=== PATIENT | male | born 1960 | race Caucasian/White ===

== ENCOUNTER 2017-08-21 10:08 | Inpatient (IN) | payer MEDICAID ==
[~2017-08-21] VITALS: Ht 175.3 cm; Wt 62.1 kg
[2017-08-21 10:49] LABS: Basophils # (auto) 0 uL; Basophils % (auto) 0.3 % (0.0-2.0); Eosinophils # (auto) 0.1 uL; Eosinophils % (auto) 0.9 % (0.0-7.0); Hematocrit 43.6 % (41.0-53.0); Hemoglobin 14.6 g/dL (13.5-17.5); Lymphocytes # (auto) 3.3 uL; Lymphocytes % (auto) 42.3 % (10.0-50.0); Mean Corpuscular Hemoglobin 33.5 pg (28.0-32.0); Mean Corpuscular Hgb Conc. 33.5 g/dL (32.0-36.0); Monocytes # (auto) 0.7 uL; Monocytes % (auto) 8.7 % (0.0-12.0); Neutrophils # (auto) 3.8 uL; Neutrophils % (auto) 47.8 % (37.0-80.0); Platelet Count (auto) 198 10^3/uL (140-450); Red Blood Cells 4.35 10^6/uL (4.5-5.90); Red Cell Distribution Width 12.9 % (11.8-14.3); White Blood Cell 7.8 10^3/uL (4.4-10.8)
[2017-08-21 10:52] LABS: Mean Corpuscular Volume 100.2 fL (80.0-100.0)
[2017-08-21 11:11] LABS: Alanine Aminotransferase 16 U/L (16-61); Albumin 4.3 g/dL (3.4-5.0); Alkaline Phosphatase 55 U/L (45-117); Anion Gap 22 (5-15); Aspartate Aminotransferase 9 U/L (15-37); BUN/Creatinine Ratio 9.3; Bilirubin, Total 0.5 mg/dL (0.2-1.0); Blood Alcohol < 3.0 mg/dL (0-5); Blood Urea Nitrogen 15 mg/dL (7-18); Calcium 9.7 mg/dL (8.5-10.1); Carbon Dioxide 15 mmol/L (21-32); Chloride 97 mmol/L (98-107); GFR African American 57 mL/min; GFR Non-African American 47 mL/min; Glucose 346 mg/dL (74-106); Magnesium 2.7 mg/dL (1.6-2.6); Potassium 4.3 mmol/L (3.5-5.1); Sodium 134 mmol/L (136-145); Total Protein 8.4 g/dL (6.4-8.2)
[2017-08-21] MEDS ORDERED: SODIUM CHLORIDE 0.9% 1,000 ML IV ONE ×2 (11:19)
[2017-08-21] MEDS ORDERED: InsuLIN REG 1unit/0.01ml Soln (100units/ml) IV ONE (13:30)
[2017-08-21] MEDS ORDERED: InsuLIN R (HUMAN) 100 UNITS in SODIUM CHL 0.9% 99 ML IV SCH (13:50)
[2017-08-21] MEDS ORDERED: DEXTROSE (50%) 50ML SYRG IV PRN (14:00)
[2017-08-21] MEDS: SODIUM CHLORIDE 0.9% 1,000 ML IV SCH ×3 (14:02→20:35)
[2017-08-21 14:12] LABS: Urine WBC None Seen /hpf (0 - 3)
[2017-08-21 14:26] LABS: Urine Bacteria NONE SEEN /hpf (None Seen); Urine Blood Negative /uL (Negative); Urine Specific Gravity 1.027 (1.001-1.035)
[2017-08-21 14:35] LABS: Basophils # (auto) 0 uL; Basophils % (auto) 0.3 % (0.0-2.0); Eosinophils # (auto) 0 uL; Eosinophils % (auto) 0.5 % (0.0-7.0); Hematocrit 35.9 % (41.0-53.0); Lymphocytes # (auto) 3.1 uL; Lymphocytes % (auto) 46.2 % (10.0-50.0); Mean Corpuscular Hemoglobin 33.7 pg (28.0-32.0); Mean Corpuscular Hgb Conc. 33.5 g/dL (32.0-36.0); Mean Corpuscular Volume 100.7 fL (80.0-100.0); Monocytes # (auto) 0.5 uL; Monocytes % (auto) 7.1 % (0.0-12.0); Neutrophils # (auto) 3.1 uL; Neutrophils % (auto) 45.9 % (37.0-80.0); Nucleated Red Blood Cells % 0.2 %; Platelet Count (auto) 123 10^3/uL (140-450); Red Blood Cells 3.57 10^6/uL (4.5-5.90); Red Cell Distribution Width 12.9 % (11.8-14.3); White Blood Cell 6.8 10^3/uL (4.4-10.8)
[2017-08-21 14:52] LABS: Calcium 7.9 mg/dL (8.5-10.1); Magnesium 2.3 mg/dL (1.6-2.6); Phosphorus 2.1 mg/dL (2.5-4.90); Potassium 3.4 mmol/L (3.5-5.1)
[2017-08-21] MEDS ORDERED: ASPirin-EC 81 mg tab PO ONE (15:00)
[2017-08-21] MEDS ORDERED: LORazepam 2MG/ML-1ML VIAL IV PRN (15:00)
[2017-08-21] MEDS ORDERED: PANTOPRAZOLE 40 MG TAB PO ONE (15:15)
[2017-08-21] MEDS ORDERED: HYDROcodone-ACET 5/325MG TAB PO PRN (15:30)
[2017-08-21] MEDS ORDERED: ONDANSETRON HCL 4 MG/2 ML VIAL IV PRN (15:30)
[2017-08-21] MEDS ORDERED: DOCUSATE SOD 100 MG CAP PO PRN (15:30)
[2017-08-21] MEDS ORDERED: MORPHINE SULFATE 4 MG/ML SYR/VIAL IV PRN ×2 (15:30)
[2017-08-21] MEDS ORDERED: TEMAZEPAM 15 MG CAP PO PRN (15:30)
[2017-08-21] MEDS ORDERED: NITROGLYCERIN 0.4 MG SL TAB SL PRN (15:30)
[2017-08-21] MEDS: ACCU-CHEK COMFORT CURVE STRIP VI SCH ×5 (15:40→21:35)
[2017-08-21] MEDS ORDERED: CITALOPRAM HYDROBR 20 MG TAB PO ONE (15:45)
[2017-08-21] MEDS ORDERED: SODIUM CHLORIDE 0.9% 1,000 ML IV SCH (17:50)
[2017-08-21 20:45] LABS: BUN/Creatinine Ratio 10.3; Calcium 7.4 mg/dL (8.5-10.1)
[2017-08-21 20:59] LABS: Potassium 2.9 mmol/L (3.5-5.1)
[2017-08-21] MEDS ORDERED: FAMOTIDINE 20 MG TAB PO SCH (22:00)
[2017-08-21] MEDS: BUDESONIDE (INHALATION) 0.5 MG/2 ML NEB NEB SCH (22:02)
[2017-08-21] MEDS: prednisoLONE ACETATE 1% OPTH SUSP 5ML LEFTEYE SCH (22:31)
[2017-08-21] MEDS: LEVETIRACETAM 500 MG TAB PO SCH (22:33)
[2017-08-21] MEDS: ATORVASTATIN 20 MG TAB PO SCH (22:33)
[2017-08-21 22:50] VITALS: BP 110/63
[2017-08-22] MEDS ORDERED: POTASSIUM CHL 20 Meq TABLET PO ONE (01:00)
[2017-08-22] MEDS: ACCU-CHEK COMFORT CURVE STRIP VI SCH ×6 (01:44→20:08)
[2017-08-22 02:25] LABS: BUN/Creatinine Ratio 8.5; Calcium 7.8 mg/dL (8.5-10.1); Potassium 3.4 mmol/L (3.5-5.1)
[2017-08-22] MEDS: SODIUM CHLORIDE 0.9% 1,000 ML IV SCH (03:33)
[2017-08-22] MEDS ORDERED: DEXTROSE (50%) 50ML SYRG IV PRN (04:00)
[2017-08-22] MEDS: InsuLIN REG 1unit/0.01ml Soln (100units/ml) SC SCH ×5 (04:21→20:08)
[2017-08-22 05:47] LABS: Basophils # (auto) 0 uL; Basophils % (auto) 0.2 % (0.0-2.0); Eosinophils # (auto) 0.1 uL; Mean Corpuscular Hemoglobin 34.2 pg (28.0-32.0); Mean Corpuscular Hgb Conc. 34.7 g/dL (32.0-36.0); Monocytes # (auto) 0.5 uL; Monocytes % (auto) 7.2 % (0.0-12.0); Platelet Count (auto) 128 10^3/uL (140-450)
[2017-08-22 05:51] LABS: Eosinophils % (auto) 1.4 % (0.0-7.0); Hematocrit 34.9 % (41.0-53.0); Hemoglobin 12.1 g/dL (13.5-17.5); Lymphocytes % (auto) 42.1 % (10.0-50.0); Mean Corpuscular Volume 98.5 fL (80.0-100.0); Neutrophils # (auto) 3.5 uL; Neutrophils % (auto) 49.1 % (37.0-80.0); Nucleated Red Blood Cells % 0.1 %; Red Blood Cells 3.55 10^6/uL (4.5-5.90); Red Cell Distribution Width 12.7 % (11.8-14.3); White Blood Cell 7.2 10^3/uL (4.4-10.8)
[2017-08-22 06:28] LABS: Albumin 2.8 g/dL (3.4-5.0); BUN/Creatinine Ratio 8.4; Bilirubin, Total 0.3 mg/dL (0.2-1.0); Calcium 8.1 mg/dL (8.5-10.1); Potassium 3.4 mmol/L (3.5-5.1); Total Protein 5.5 g/dL (6.4-8.2)
[2017-08-22 09:08] VITALS: BP 105/72
[2017-08-22] MEDS: TIMOLOL MALEATE 0.25 % OPTH SOL 5ML LEFTEYE SCH (10:00)
[2017-08-22] MEDS: BUDESONIDE (INHALATION) 0.5 MG/2 ML NEB NEB SCH ×2 (10:00→22:00)
[2017-08-22] MEDS: ASPirin-EC 81 mg tab PO SCH (10:55)
[2017-08-22] MEDS: PANTOPRAZOLE 40 MG TAB PO SCH (10:57)
[2017-08-22] MEDS: MULTIPLE VITAMIN TAB PO SCH (10:57)
[2017-08-22] MEDS: B-COMPLEX W/ C & FOLIC ACID(NEPHROVITE TAB) PO SCH (10:57)
[2017-08-22] MEDS: CYANOCOBALAMIN 500 MCG TAB PO SCH (10:57)
[2017-08-22] MEDS: LEVETIRACETAM 500 MG TAB PO SCH ×2 (10:58→21:44)
[2017-08-22] MEDS: prednisoLONE ACETATE 1% OPTH SUSP 5ML LEFTEYE SCH ×2 (10:59→21:43)
[2017-08-22] MEDS: CITALOPRAM HYDROBR 20 MG TAB PO SCH (11:06)
[2017-08-22 11:54] VITALS: BP 95/55
[2017-08-22 17:00] VITALS: BP 93/58
[2017-08-22] MEDS: ATORVASTATIN 20 MG TAB PO SCH (21:44)
[2017-08-22 22:00] VITALS: BP 98/60
[2017-08-23] MEDS: InsuLIN REG 1unit/0.01ml Soln (100units/ml) SC SCH ×7 (00:23→23:54)
[2017-08-23] MEDS: ACCU-CHEK COMFORT CURVE STRIP VI SCH ×7 (00:23→23:54)
[2017-08-23 05:00] VITALS: BP 100/59
[2017-08-23 09:00] VITALS: BP 90/53
[2017-08-23] MEDS: BUDESONIDE (INHALATION) 0.5 MG/2 ML NEB NEB SCH ×2 (09:51→18:39)
[2017-08-23] MEDS: TIMOLOL MALEATE 0.25 % OPTH SOL 5ML LEFTEYE SCH (10:00)
[2017-08-23] MEDS: prednisoLONE ACETATE 1% OPTH SUSP 5ML LEFTEYE SCH ×4 (10:00→21:25)
[2017-08-23] MEDS: LEVETIRACETAM 500 MG TAB PO SCH ×2 (10:25→21:14)
[2017-08-23] MEDS: ASPirin-EC 81 mg tab PO SCH (10:25)
[2017-08-23] MEDS: CITALOPRAM HYDROBR 20 MG TAB PO SCH (10:26)
[2017-08-23] MEDS: metFORMIN HYDROCHLORIDE 500 MG TAB PO SCH (10:26)
[2017-08-23] MEDS: PANTOPRAZOLE 40 MG TAB PO SCH (10:26)
[2017-08-23] MEDS: B-COMPLEX W/ C & FOLIC ACID(NEPHROVITE TAB) PO SCH (10:26)
[2017-08-23] MEDS: CYANOCOBALAMIN 500 MCG TAB PO SCH (10:26)
[2017-08-23] MEDS: MULTIPLE VITAMIN TAB PO SCH (10:26)
[2017-08-23 10:32] LABS: Basophils # (auto) 0 uL; Basophils % (auto) 0.1 % (0.0-2.0); Eosinophils # (auto) 0.1 uL; Eosinophils % (auto) 0.8 % (0.0-7.0); Hematocrit 34.9 % (41.0-53.0); Lymphocytes # (auto) 2.5 uL; Lymphocytes % (auto) 33.9 % (10.0-50.0); Mean Corpuscular Hemoglobin 33.7 pg (28.0-32.0); Mean Corpuscular Hgb Conc. 34.5 g/dL (32.0-36.0); Mean Corpuscular Volume 97.8 fL (80.0-100.0); Monocytes # (auto) 0.6 uL; Monocytes % (auto) 8.5 % (0.0-12.0); Neutrophils # (auto) 4.2 uL; Neutrophils % (auto) 56.7 % (37.0-80.0); Platelet Count (auto) 131 10^3/uL (140-450); Red Blood Cells 3.57 10^6/uL (4.5-5.90); Red Cell Distribution Width 12.8 % (11.8-14.3); White Blood Cell 7.4 10^3/uL (4.4-10.8)
[2017-08-23 10:48] LABS: Albumin 2.6 g/dL (3.4-5.0); BUN/Creatinine Ratio 10.8; Bilirubin, Total 0.3 mg/dL (0.2-1.0); Calcium 8.2 mg/dL (8.5-10.1); Potassium 3.1 mmol/L (3.5-5.1); Total Protein 5.3 g/dL (6.4-8.2)
[2017-08-23 12:30] VITALS: BP 82/50
[2017-08-23 17:00] VITALS: BP 109/67
[2017-08-23] MEDS: ATORVASTATIN 20 MG TAB PO SCH (21:15)
[2017-08-23 21:30] VITALS: BP 97/65
[2017-08-24] MEDS: InsuLIN REG 1unit/0.01ml Soln (100units/ml) SC SCH ×5 (03:59→20:47)
[2017-08-24] MEDS: ACCU-CHEK COMFORT CURVE STRIP VI SCH ×5 (03:59→20:00)
[2017-08-24 04:45] VITALS: BP 98/60
[2017-08-24 06:24] LABS: BUN/Creatinine Ratio 15.9; Calcium 8.7 mg/dL (8.5-10.1)
[2017-08-24 09:00] VITALS: BP 97/54
[2017-08-24] MEDS: metFORMIN HYDROCHLORIDE 500 MG TAB PO SCH (09:43)
[2017-08-24] MEDS: prednisoLONE ACETATE 1% OPTH SUSP 5ML LEFTEYE SCH ×2 (09:43→21:52)
[2017-08-24] MEDS: PANTOPRAZOLE 40 MG TAB PO SCH (09:43)
[2017-08-24] MEDS: MULTIPLE VITAMIN TAB PO SCH (09:43)
[2017-08-24] MEDS: B-COMPLEX W/ C & FOLIC ACID(NEPHROVITE TAB) PO SCH (09:43)
[2017-08-24] MEDS: CITALOPRAM HYDROBR 20 MG TAB PO SCH (09:43)
[2017-08-24] MEDS: ASPirin-EC 81 mg tab PO SCH (09:44)
[2017-08-24] MEDS: CYANOCOBALAMIN 500 MCG TAB PO SCH (09:44)
[2017-08-24] MEDS: LEVETIRACETAM 500 MG TAB PO SCH ×2 (09:44→21:52)
[2017-08-24] MEDS: TIMOLOL MALEATE 0.25 % OPTH SOL 5ML LEFTEYE SCH (09:45)
[2017-08-24] MEDS ORDERED: POTASSIUM CHLORIDE 60 MEQ, LIDOCAINE 1% (LOCAL ANESTH.) 6 ML in SODIUM CHL 0.9% 500 ML IV ONE (10:00)
[2017-08-24 13:00] VITALS: BP 88/49
[2017-08-24 16:58] VITALS: BP 97/62
[2017-08-24] MEDS: ATORVASTATIN 20 MG TAB PO SCH (21:53)
[2017-08-24 22:00] VITALS: BP 101/69
[2017-08-25] MEDS: ACCU-CHEK COMFORT CURVE STRIP VI SCH ×4 (00:23→12:00)
[2017-08-25] MEDS: InsuLIN REG 1unit/0.01ml Soln (100units/ml) SC SCH ×4 (04:52→12:00)
[2017-08-25 05:48] VITALS: BP 93/53
[2017-08-25 05:55] LABS: Red Cell Distribution Width 12.8 % (11.8-14.3); White Blood Cell 6.4 10^3/uL (4.4-10.8)
[2017-08-25 05:58] LABS: Hematocrit 33.8 % (41.0-53.0); Hemoglobin 11.7 g/dL (13.5-17.5); Mean Corpuscular Hemoglobin 34.4 pg (28.0-32.0); Mean Corpuscular Hgb Conc. 34.6 g/dL (32.0-36.0); Mean Corpuscular Volume 99.4 fL (80.0-100.0); Platelet Count (auto) 108 10^3/uL (140-450)
[2017-08-25 06:23] LABS: Albumin 2.6 g/dL (3.4-5.0); BUN/Creatinine Ratio 16.9; Bilirubin, Total 0.2 mg/dL (0.2-1.0); Calcium 8.5 mg/dL (8.5-10.1); Potassium 3.6 mmol/L (3.5-5.1); Total Protein 5.2 g/dL (6.4-8.2)
[2017-08-25 06:31] LABS: Band Neutrophils % (manual) 0
[2017-08-25 06:32] LABS: Basophils % (manual) 0 (0.0-2.0); Blast Cells 0; Eosinophils % (manual) 0 (0-7); Metamyelocytes % 0; Myelocytes % 0; Promyelocytes % 0; Reactive Lymphocytes 0
[2017-08-25 07:02] LABS: Lymphocytes % (manual) 69 (10.0-50.0); Monocytes % (manual) 6 (0-12)
[2017-08-25 08:00] VITALS: BP 103/68
[2017-08-25] MEDS: TIMOLOL MALEATE 0.25 % OPTH SOL 5ML LEFTEYE SCH (08:55)
[2017-08-25] MEDS: B-COMPLEX W/ C & FOLIC ACID(NEPHROVITE TAB) PO SCH (08:55)
[2017-08-25] MEDS: CITALOPRAM HYDROBR 20 MG TAB PO SCH (08:55)
[2017-08-25] MEDS: prednisoLONE ACETATE 1% OPTH SUSP 5ML LEFTEYE SCH (08:55)
[2017-08-25] MEDS: PANTOPRAZOLE 40 MG TAB PO SCH (08:56)
[2017-08-25] MEDS: ASPirin-EC 81 mg tab PO SCH (08:56)
[2017-08-25] MEDS: MULTIPLE VITAMIN TAB PO SCH (08:56)
[2017-08-25] MEDS: LEVETIRACETAM 500 MG TAB PO SCH (08:56)
[2017-08-25] MEDS: metFORMIN HYDROCHLORIDE 500 MG TAB PO SCH (08:56)
[2017-08-25] MEDS: CYANOCOBALAMIN 500 MCG TAB PO SCH (08:56)
[2017-08-25 12:38] VITALS: BP 109/74
== END 2017-08-25 15:02 | disposition home or self-care (01) | DRG 420 ==
LOC: ER 10:08 → OVERFLOW 10:09 → TELE-WESTW 08-22 08:00
PROVIDERS: ADMIT Internal Medicine; ATTEND Internal Medicine
DX: E11.10 Type 2 diabetes mellitus with ketoacidosis without coma (principal); N17.0 Acute kidney failure with tubular necrosis; G93.41 Metabolic encephalopathy; E44.0 Moderate protein-calorie malnutrition; N18.3 Chronic kidney disease, stage 3 (moderate); E87.1 Hypo-osmolality and hyponatremia; F17.210 Nicotine dependence, cigarettes, uncomplicated; E11.21 Type 2 diabetes mellitus with diabetic nephropathy; E11.22 Type 2 diabetes mellitus with diabetic chronic kidney disease; E11.40 Type 2 diabetes mellitus with diabetic neuropathy, unspecified; E78.5 Hyperlipidemia, unspecified; E83.41 Hypermagnesemia; E86.0 Dehydration; I67.2 Cerebral atherosclerosis; E87.6 Hypokalemia; F79 Unspecified intellectual disabilities; Z91.19 Patient's noncompliance with other medical treatment and regimen; I69.311 Memory deficit following cerebral infarction; I69.398 Other sequelae of cerebral infarction
CPT/HCPCS: 36415; 36600; 70450; 71046; 80048; 80053; 80320; 81001; 82010; 82805; 82962; 83036; 83735; 83930; 84100; 84443; 84484; 85007; 85025; 85027; 87081; 93005; 93886; 94640; 96361; 96374; 99291; G0378; J1815; J2001

== ENCOUNTER 2020-05-24 07:31 | Inpatient (IN) | payer MEDICAID ==
[~2020-05-24] VITALS: Ht 170.2 cm; Wt 61.2 kg
[2020-05-24] MEDS ORDERED: SODIUM CHLORIDE 0.9% 1,000 ML IV ONE ×2 (08:15→09:45)
[2020-05-24] MEDS ORDERED: InsuLIN REG 1unit/0.01ml Soln (100units/ml) IV ONE ×2 (09:15→16:15)
[2020-05-24 10:16] LABS: Basophils # (auto) 0.1 10 ^3/uL (0-0.2); Eosinophils # (auto) 0 10 ^3/uL (0-0.8); Hemoglobin 15.6 g/dL (13.5-17.5); Neutrophils # (auto) 17.1 10 ^3/uL (1.6-8.6)
[2020-05-24 10:21] LABS: Basophils % (auto) 0.3 % (0.0-2.0); Hematocrit 51.5 % (41.0-53.0); Lymphocytes # (auto) 2.7 10 ^3/uL (0.4-5.4); Lymphocytes % (auto) 11.4 % (10.0-50.0); Mean Corpuscular Hemoglobin 33.2 pg (28.0-32.0); Mean Corpuscular Hgb Conc. 30.3 g/dL (32.0-36.0); Mean Corpuscular Volume 109.8 fL (80.0-100.0); Monocytes # (auto) 3.5 10 ^3/uL (0-1.3); Neutrophils % (auto) 73.3 % (37.0-80.0); Platelet Count (auto) 202 10^3/uL (140-450); Red Blood Cells 4.69 10^6/uL (4.5-5.90); Red Cell Distribution Width 14.5 % (11.8-14.3); White Blood Cell 23.4 10^3/uL (4.4-10.8)
[2020-05-24 12:01] LABS: Albumin 4.2 g/dL (3.4-5.0); Anion Gap 32 (5-15); Blood Urea Nitrogen 51 mg/dL (7-18); Calcium 8.7 mg/dL (8.5-10.1); Carbon Dioxide 10 mmol/L (21-32); Chloride 89 mmol/L (98-107); Potassium 3.6 mmol/L (3.5-5.1); Sodium 131 mmol/L (136-145)
[2020-05-24 12:09] LABS: Alanine Aminotransferase 22 U/L (16-61); Alkaline Phosphatase 88 U/L (45-117); Aspartate Aminotransferase 11 U/L (15-37); BUN/Creatinine Ratio 16.2; Bilirubin, Total 0.6 mg/dL (0.2-1.0); GFR African American 26 mL/min; GFR Non-African American 22 mL/min; Total Protein 8.3 g/dL (6.4-8.2)
[2020-05-24 12:47] LABS: Glucose 675 mg/dL (74-106)
[2020-05-24 15:45] LABS: Lactic Acid w/Reflex 2.6 mmol/L (0.4-2.0)
[2020-05-24] MEDS ORDERED: MORPHINE SULF INJ 2 MG/ML SYRINGE 1ML IV PRN ×2 (16:15)
[2020-05-24] MEDS ORDERED: INSULIN LANTUS (GLARGINE) 1 /0.01ml (100units/ml) SC ONE (16:15)
[2020-05-24] MEDS ORDERED: DEXTROSE (50%) 50ML SYRG IV PRN (16:15)
[2020-05-24] MEDS ORDERED: NITROGLYCERIN 0.4 MG SL TAB SL PRN (16:15)
[2020-05-24] MEDS: ACCU-CHEK COMFORT CURVE STRIP VI SCH ×5 (16:30→22:58)
[2020-05-24] MEDS: SODIUM CHLORIDE 0.9% 1,000 ML IV SCH ×3 (18:00→21:26)
[2020-05-24] MEDS ORDERED: SODIUM CHLORIDE 0.9% 1,000 ML IV SCH (20:15)
[2020-05-24 20:22] LABS: Basophils # (auto) 0.1 10 ^3/uL (0-0.2); Basophils % (auto) 0.7 % (0.0-2.0); Eosinophils # (auto) 0 10 ^3/uL (0-0.8); Hematocrit 41.8 % (41.0-53.0); Hemoglobin 13.6 g/dL (13.5-17.5); Lymphocytes # (auto) 2.4 10 ^3/uL (0.4-5.4); Lymphocytes % (auto) 12.2 % (10.0-50.0); Mean Corpuscular Hemoglobin 32.6 pg (28.0-32.0); Mean Corpuscular Hgb Conc. 32.5 g/dL (32.0-36.0); Mean Corpuscular Volume 100.3 fL (80.0-100.0); Monocytes # (auto) 2.8 10 ^3/uL (0-1.3); Monocytes % (auto) 14.5 % (0.0-12.0); Neutrophils # (auto) 14.2 10 ^3/uL (1.6-8.6); Neutrophils % (auto) 72.6 % (37.0-80.0); Nucleated Red Blood Cells % 0.1 %; Platelet Count (auto) 163 10^3/uL (140-450); Red Blood Cells 4.16 10^6/uL (4.5-5.90); Red Cell Distribution Width 13.4 % (11.8-14.3); White Blood Cell 19.5 10^3/uL (4.4-10.8)
[2020-05-24 20:29] LABS: Magnesium 2.8 mg/dL (1.6-2.6)
[2020-05-24] MEDS ORDERED: InsuLIN REG 1unit/0.01ml Soln (100units/ml) ONE (20:55)
[2020-05-24] MEDS: InsuLIN R (HUMAN) 100 UNITS in SODIUM CHL 0.9% 99 ML IV SCH ×2 (21:25→22:58)
[2020-05-24 23:31] LABS: Urine Bacteria FEW /hpf (None Seen); Urine Blood 1+ /uL (Negative); Urine Hyaline Cast FEW /lpf (0 - 2); Urine WBC 1 /hpf (0 - 3)
[2020-05-25] MEDS: ACCU-CHEK COMFORT CURVE STRIP VI SCH ×13 (00:08→22:46)
[2020-05-25 00:37] LABS: Calcium 8.9 mg/dL (8.5-10.1); Potassium 4.8 mmol/L (3.5-5.1)
[2020-05-25 00:38] LABS: BUN/Creatinine Ratio 20.8
[2020-05-25] MEDS: InsuLIN R (HUMAN) 100 UNITS in SODIUM CHL 0.9% 99 ML IV SCH ×4 (00:43→05:02)
[2020-05-25] MEDS: SODIUM CHLORIDE 0.9% 1,000 ML IV SCH ×2 (03:50→13:42)
[2020-05-25] MEDS: D5W/SOD CHLO 0.9% 1,000 ML IV SCH ×3 (03:50→16:50)
[2020-05-25 04:32] LABS: Basophils # (auto) 0.2 10 ^3/uL (0-0.2); Basophils % (auto) 1.1 % (0.0-2.0); Eosinophils # (auto) 0 10 ^3/uL (0-0.8); Hematocrit 38.4 % (41.0-53.0); Hemoglobin 13.3 g/dL (13.5-17.5); Lymphocytes # (auto) 2.7 10 ^3/uL (0.4-5.4); Lymphocytes % (auto) 17.3 % (10.0-50.0); Mean Corpuscular Hemoglobin 33.5 pg (28.0-32.0); Mean Corpuscular Hgb Conc. 34.7 g/dL (32.0-36.0); Mean Corpuscular Volume 96.7 fL (80.0-100.0); Monocytes % (auto) 12.4 % (0.0-12.0); Neutrophils # (auto) 10.9 10 ^3/uL (1.6-8.6); Neutrophils % (auto) 69.2 % (37.0-80.0); Nucleated Red Blood Cells % 0.1 %; Platelet Count (auto) 163 10^3/uL (140-450); Red Blood Cells 3.97 10^6/uL (4.5-5.90); White Blood Cell 15.8 10^3/uL (4.4-10.8)
[2020-05-25 04:46] LABS: Calcium 8.2 mg/dL (8.5-10.1); Magnesium 2.3 mg/dL (1.6-2.6)
[2020-05-25 04:50] LABS: Phosphorus 1.3 mg/dL (2.5-4.90); Potassium 3.3 mmol/L (3.5-5.1)
[2020-05-25 04:51] LABS: BUN/Creatinine Ratio 22.6
[2020-05-25] MEDS ORDERED: POTASSIUM PHOSPHATE 44 MEQ in D5W 5% 250 ML IV ONE (12:45)
[2020-05-25] MEDS: INSULIN LANTUS (GLARGINE) 1 /0.01ml (100units/ml) SC SCH (14:55)
[2020-05-25] MEDS: InsuLIN REG 1unit/0.01ml Soln (100units/ml) SC SCH ×3 (14:55→22:00)
[2020-05-25 18:26] VITALS: BP 124/63
[2020-05-25 22:00] VITALS: BP 139/84
[2020-05-25 23:26] LABS: Potassium 3.3 mmol/L (3.5-5.1)
[2020-05-25 23:30] LABS: BUN/Creatinine Ratio 22.5; Calcium 8.9 mg/dL (8.5-10.1)
[2020-05-26] MEDS: D5W/SOD CHLO 0.9% 1,000 ML IV SCH (02:57)
[2020-05-26 05:00] VITALS: BP 123/61
[2020-05-26] MEDS: ACCU-CHEK COMFORT CURVE STRIP VI SCH ×4 (06:17→22:00)
[2020-05-26] MEDS: InsuLIN REG 1unit/0.01ml Soln (100units/ml) SC SCH ×4 (06:17→22:00)
[2020-05-26 06:51] LABS: Basophils # (auto) 0 10 ^3/uL (0-0.2); Basophils % (auto) 0.1 % (0.0-2.0); Eosinophils # (auto) 0 10 ^3/uL (0-0.8); Eosinophils % (auto) 0.1 % (0.0-7.0); Hematocrit 44.1 % (41.0-53.0); Hemoglobin 15.1 g/dL (13.5-17.5); Lymphocytes # (auto) 2.1 10 ^3/uL (0.4-5.4); Lymphocytes % (auto) 20.8 % (10.0-50.0); Mean Corpuscular Hemoglobin 33.2 pg (28.0-32.0); Mean Corpuscular Hgb Conc. 34.2 g/dL (32.0-36.0); Monocytes # (auto) 1.5 10 ^3/uL (0-1.3); Monocytes % (auto) 14.9 % (0.0-12.0); Neutrophils # (auto) 6.4 10 ^3/uL (1.6-8.6); Neutrophils % (auto) 64.1 % (37.0-80.0); Platelet Count (auto) 151 10^3/uL (140-450); Red Blood Cells 4.55 10^6/uL (4.5-5.90); Red Cell Distribution Width 13.2 % (11.8-14.3)
[2020-05-26 07:10] LABS: BUN/Creatinine Ratio 22.9; Phosphorus 2.3 mg/dL (2.5-4.90); Potassium 3.1 mmol/L (3.5-5.1)
[2020-05-26 08:30] VITALS: BP_SYST 123; BP_DIAS 55; BP_DIAS 59
[2020-05-26] MEDS ORDERED: POTASSIUM CHLORIDE 40 MEQ, LIDOCAINE 1% (LOCAL ANESTH.) 4 ML in SODIUM CHL 0.9% 250 ML IV ONE (09:30)
[2020-05-26] MEDS: SODIUM CHLORIDE 0.9% 1,000 ML IV SCH ×2 (11:15→16:41)
[2020-05-26 12:00] VITALS: BP 120/67
[2020-05-26 16:30] VITALS: BP 101/67
[2020-05-26] MEDS: POTASSIUM CHL 20 Meq TABLET PO SCH ×2 (16:36→23:00)
[2020-05-26] MEDS: INSULIN LANTUS (GLARGINE) 1 /0.01ml (100units/ml) SC SCH (16:37)
[2020-05-26] MEDS: TAMSULOSIN HYDROCHLORIDE 0.4 MG CAP PO SCH (17:39)
[2020-05-26 19:28] LABS: Urine Bacteria FEW /hpf (None Seen); Urine Blood 3+ /uL (Negative); Urine Mucus FEW (None Seen); Urine Specific Gravity 1.018 (1.001-1.035); Urine WBC 133 /hpf (0 - 3); Urine WBC Clumps PRESENT /hpf (None Seen)
[2020-05-26 19:55] LABS: Creatinine, Urine 91.6 mg/dL (30.0-125.0); Protein, Urine 431.2 mg/dL (0.0-11.9)
[2020-05-26 23:50] VITALS: BP 131/65
[2020-05-27] MEDS: SODIUM CHLORIDE 0.9% 1,000 ML IV SCH ×2 (01:42→09:08)
[2020-05-27 05:39] VITALS: BP 113/70
[2020-05-27 06:23] LABS: Basophils # (auto) 0 10 ^3/uL (0-0.2); Basophils % (auto) 0.3 % (0.0-2.0); Eosinophils # (auto) 0.1 10 ^3/uL (0-0.8); Eosinophils % (auto) 1.1 % (0.0-7.0); Hematocrit 34.5 % (41.0-53.0); Hemoglobin 11.9 g/dL (13.5-17.5); Lymphocytes # (auto) 2.6 10 ^3/uL (0.4-5.4); Lymphocytes % (auto) 39.3 % (10.0-50.0); Mean Corpuscular Hemoglobin 33.6 pg (28.0-32.0); Mean Corpuscular Hgb Conc. 34.5 g/dL (32.0-36.0); Mean Corpuscular Volume 97.4 fL (80.0-100.0); Monocytes # (auto) 0.8 10 ^3/uL (0-1.3); Monocytes % (auto) 11.8 % (0.0-12.0); Neutrophils # (auto) 3.2 10 ^3/uL (1.6-8.6); Neutrophils % (auto) 47.5 % (37.0-80.0); Nucleated Red Blood Cells % 0.1 %; Platelet Count (auto) 110 10^3/uL (140-450); Red Blood Cells 3.54 10^6/uL (4.5-5.90); White Blood Cell 6.7 10^3/uL (4.4-10.8)
[2020-05-27 06:37] LABS: Albumin 2.7 g/dL (3.4-5.0); Calcium 7.6 mg/dL (8.5-10.1)
[2020-05-27 06:41] LABS: BUN/Creatinine Ratio 23.9; Bilirubin, Total 0.4 mg/dL (0.2-1.0); Total Protein 5.4 g/dL (6.4-8.2)
[2020-05-27] MEDS: ACCU-CHEK COMFORT CURVE STRIP VI SCH ×4 (06:46→22:00)
[2020-05-27] MEDS: InsuLIN REG 1unit/0.01ml Soln (100units/ml) SC SCH ×4 (06:51→22:50)
[2020-05-27 08:30] VITALS: BP 127/73
[2020-05-27] MEDS: POTASSIUM CHL 20 Meq TABLET PO SCH ×2 (09:07→22:46)
[2020-05-27] MEDS ORDERED: POTASSIUM CHLORIDE 80 MEQ, LIDOCAINE 1% (LOCAL ANESTH.) 6 ML in SODIUM CHL 0.9% 500 ML IV ONE (10:30)
[2020-05-27] MEDS: INSULIN LANTUS (GLARGINE) 1 /0.01ml (100units/ml) SC SCH (11:30)
[2020-05-27 12:00] VITALS: BP 95/50
[2020-05-27] MEDS: TAMSULOSIN HYDROCHLORIDE 0.4 MG CAP PO SCH (17:26)
[2020-05-27] MEDS: SOD CHL IV SCH (19:07)
[2020-05-27] MEDS: POTASSIUM CHLORIDE IV SCH (19:07)
[2020-05-27] MEDS: KCL IV SCH (19:07)
[2020-05-27 20:00] VITALS: BP_SYST 105; BP_SYST 127; BP_DIAS 73; BP_DIAS 74
[2020-05-28] VITALS (7 sets, daily range): BP systolic 102–118; BP diastolic 58–72
[2020-05-28] MEDS: ACCU-CHEK COMFORT CURVE STRIP VI SCH ×4 (06:39→21:10)
[2020-05-28] MEDS: InsuLIN REG 1unit/0.01ml Soln (100units/ml) SC SCH ×4 (06:46→21:10)
[2020-05-28 07:25] LABS: BUN/Creatinine Ratio 15.9; Magnesium 1.5 mg/dL (1.6-2.6); Potassium 3.6 mmol/L (3.5-5.1)
[2020-05-28] MEDS: POTASSIUM CHL 20 Meq TABLET PO SCH ×2 (09:19→21:10)
[2020-05-28] MEDS: INSULIN LANTUS (GLARGINE) 1 /0.01ml (100units/ml) SC SCH (09:21)
[2020-05-28] MEDS: KCL IV SCH (09:21)
[2020-05-28] MEDS: POTASSIUM CHLORIDE IV SCH (09:21)
[2020-05-28] MEDS: SOD CHL IV SCH (09:21)
[2020-05-28] MEDS: MAGNESIUM SULFATE 1GM/100ML 100 ML IV SCH ×2 (11:10→12:24)
[2020-05-28] MEDS: TAMSULOSIN HYDROCHLORIDE 0.4 MG CAP PO SCH (18:25)
[2020-05-29] MEDS: KCL IV SCH (00:48)
[2020-05-29] MEDS: POTASSIUM CHLORIDE IV SCH (00:48)
[2020-05-29] MEDS: SOD CHL IV SCH (00:48)
[2020-05-29] MEDS: InsuLIN REG 1unit/0.01ml Soln (100units/ml) SC SCH ×3 (06:11→17:00)
[2020-05-29] MEDS: ACCU-CHEK COMFORT CURVE STRIP VI SCH ×3 (06:11→16:59)
[2020-05-29 09:00] VITALS: BP 94/65
[2020-05-29] MEDS: POTASSIUM CHL 20 Meq TABLET PO SCH (09:22)
[2020-05-29] MEDS ORDERED: INSULIN LANTUS (GLARGINE) 1 /0.01ml (100units/ml) SC SCH (10:00)
[2020-05-29 13:00] VITALS: BP 129/81
[2020-05-29] MEDS ORDERED: SOD CHL 0.45% WITH 20MEQ KCL 1,000 ML IV SCH (14:00)
[2020-05-29 16:47] VITALS: BP 110/60
[2020-05-29] MEDS: TAMSULOSIN HYDROCHLORIDE 0.4 MG CAP PO SCH (17:00)
== END 2020-05-29 18:20 | disposition home or self-care (01) | DRG 420 ==
LOC: ER 07:31 → TELE 16:15 → TELE-WESTW 05-25 18:32 → TELE-CENTR 05-26 21:41
PROVIDERS: ADMIT Nurse Practitioner Acute Care; ATTEND Internal Medicine
PROC: 0T9B70Z Drainage of Bladder with Drainage Device, Via Natural or Artificial Opening (ICD-10-PCS; principal; 2020-05-29)
DX: E11.10 Type 2 diabetes mellitus with ketoacidosis without coma (principal); N17.0 Acute kidney failure with tubular necrosis; E86.0 Dehydration; N18.30 Chronic kidney disease, stage 3 unspecified; I50.22 Chronic systolic (congestive) heart failure; E87.6 Hypokalemia; R33.9 Retention of urine, unspecified; Z20.828 Contact with and (suspected) exposure to other viral communicable diseases; F17.210 Nicotine dependence, cigarettes, uncomplicated; G40.909 Epilepsy, unspecified, not intractable, without status epilepticus; R65.10 Systemic inflammatory response syndrome (SIRS) of non-infectious origin without acute organ dysfunction; R41.89 Other symptoms and signs involving cognitive functions and awareness; E11.22 Type 2 diabetes mellitus with diabetic chronic kidney disease; E44.0 Moderate protein-calorie malnutrition; Z86.73 Personal history of transient ischemic attack (TIA), and cerebral infarction without residual deficits; Z79.4 Long term (current) use of insulin; Z91.14 Patient's other noncompliance with medication regimen; Z72.89 Other problems related to lifestyle; Z68.21 Body mass index [BMI] 21.0-21.9, adult; I13.0 Hypertensive heart and chronic kidney disease with heart failure and stage 1 through stage 4 chronic kidney disease, or unspecified chronic kidney disease
CPT/HCPCS: 36415; 71045; 80048; 80053; 80061; 81001; 82010; 82570; 82962; 83036; 83605; 83735; 83930; 84100; 84156; 84300; 84484; 85025; 87040; 87426; 93005; 96361; 96374; 96376; G0378; J1815; J2001; J7042; J7060